=== PATIENT | male | born 1940 | race Caucasian/White ===

== ENCOUNTER 2016-10-06 10:20 | Day surgery (SDC) | payer OTHER ==
[~2016-10-06] VITALS: Ht 172.7 cm; Wt 92.4 kg
[~2016-10-06 10:20] MED LIST: ASPIRIN325 MG PO; COQ1030 MG PO; EYE VITAMINS PO; FISH OIL PO; FLOMAX0.4 MG PO; MULTIPLE VITAMIN PO; OMEPRAZOLE20 M1 PO
--- NOTE | 2016-10-06 13:11 | Provider's Discharge Care Plan ---
Problem, Goal, Plan Problem List 1. Hiatal hernia
--- NOTE | 2016-10-06 13:11 | Provider's Discharge Care Plan ---
Problem, Goal, Plan Problem List 1. Hiatal hernia
[2016-10-06 14:45] VITALS: BP 156/91
== END 2016-10-06 14:45 | disposition home or self-care (01) ==
LOC: OR SRH 10:20 → ACUTE3 SRH 10:20 → OR SRH 12:00
PROVIDERS: Surgery
PROC: 0DB68ZX Excision of Stomach, Via Natural or Artificial Opening Endoscopic, Diagnostic (ICD-10-PCS; principal; 2016-10-06 12:00)
PROC: 0DB38ZX Excision of Lower Esophagus, Via Natural or Artificial Opening Endoscopic, Diagnostic (ICD-10-PCS; principal; 2016-10-06 12:00)
DX: K44.9 Diaphragmatic hernia without obstruction or gangrene (principal); K29.70 Gastritis, unspecified, without bleeding; K21.9 Gastro-esophageal reflux disease without esophagitis